=== PATIENT | female | born 1935 | race Caucasian/White ===

== ENCOUNTER → 2016-05-10 | Outpatient (CLI) | payer MEDICARE, OTHER ==
[~2016-05-10] MED LIST: CALCIUM 500 +1 EAC4 PO; CENTRUM SILVER1 EAC3 PO; CITRACAL SOFT1 EACH PO; COZAAR50 MG PO; DULCOLAX10 MG RECTAL; FERROUS SULFAT325 M1 PO; FISH OIL1 GM PO; FLOVENT DISKUS50 MCG NASBOTH; IPRATROPIUM BROMIDE NASBOTH; LEVAQUIN750 MG PO; LEXAPRO20 MG PO; MAGNESIUM OXID400 MG PO; MICROZIDE12.5 MG PO; MILK OF MAGNESI30 ML PO; MIRALAX17 GM PO; MOBIC7.5 M1 PO; MONOPRIL10 MG PO; MUCINEX600 M1 PO; NAMENDA10 MG PO; NORVASC2.5 M1 PO; OS-CAL 500+D31 EAC1 PO; OSTEO BI-FLEX1 EAC1 PO; PROTONIX20 MG PO; RAZADYNE ER24 MG PO; RAZADYNE ER8 MG PO; RITALIN20 MG PO; SENNA-S TABLET1 EACH PO; TAMBOCOR50 MG PO; TOPROL XL25 MG PO; TRINTELLIX PO; TYLENOL325 MG PO; ULTRAM50 MG PO; VITAMIN B-121000 MC1 PO; VITAMIN B-121000 MCG PO; VITAMIN C1000 M1 PO; VITAMIN C250 MG PO; VITAMIN D35000 UNIT PO; WELLBUTRIN XL300 MG PO; XARELTO10 MG PO
== END | disposition short-term general hospital (02) ==
LOC: CLNEUR 09:49
DX: F03.90 Unspecified dementia, unspecified severity, without behavioral disturbance, psychotic disturbance, mood disturbance, and anxiety (principal); G30.9 Alzheimer's disease, unspecified

== ENCOUNTER → 2016-05-17 | Outpatient (CLI) | payer MEDICARE, OTHER | END | disposition short-term general hospital (02) | LOC: CLORTH 10:19 | DX: M17.12 Unilateral primary osteoarthritis, left knee (principal); M16.12 Unilateral primary osteoarthritis, left hip; M25.552 Pain in left hip; M25.562 Pain in left knee ==

== ENCOUNTER → 2016-06-22 | Outpatient (CLI) | payer MEDICARE, OTHER | END | disposition short-term general hospital (02) | LOC: CLCARD 06-08 10:54 | DX: I48.0 Paroxysmal atrial fibrillation (principal); I44.7 Left bundle-branch block, unspecified; R41.3 Other amnesia; I25.10 Atherosclerotic heart disease of native coronary artery without angina pectoris; I12.9 Hypertensive chronic kidney disease with stage 1 through stage 4 chronic kidney disease, or unspecified chronic kidney disease; N18.3 Chronic kidney disease, stage 3 (moderate) ==

== ENCOUNTER 2016-08-26 11:27 | Emergency (ER) | payer MEDICARE, OTHER ==
[~2016-08-26] VITALS: Ht 162.6 cm; Wt 61.7 kg
[~2016-08-26 11:27] MED LIST changes: -CENTRUM SILVER1 EAC3 PO; -DULCOLAX10 MG RECTAL; -LEVAQUIN750 MG PO; -MILK OF MAGNESI30 ML PO; -MUCINEX600 M1 PO; -SENNA-S TABLET1 EACH PO; -TRINTELLIX PO; -TYLENOL325 MG PO
[2016-12-02] MEDS ORDERED: DULCOLAX10 MG RECTAL (17:23)
[2016-12-02] MEDS ORDERED: MILK OF MAGNESI30 ML PO (17:24)
[2016-12-02] MEDS ORDERED: SENNA-S TABLET1 EACH PO (17:26)
[2016-12-02] MEDS ORDERED: TRINTELLIX PO (17:32)
[2016-12-02] MEDS ORDERED: CENTRUM SILVER1 EAC3 PO (17:35)
[2016-12-02] MEDS ORDERED: TYLENOL325 MG PO (17:41)
[2016-12-04] MEDS ORDERED: MUCINEX600 M1 PO (13:00)
[2016-12-04] MEDS ORDERED: LEVAQUIN750 MG PO (13:03)
== END 2016-08-26 13:40 | disposition short-term general hospital (02) ==
LOC: ER 11:27
DX: K30 Functional dyspepsia (principal); F03.90 Unspecified dementia, unspecified severity, without behavioral disturbance, psychotic disturbance, mood disturbance, and anxiety; K21.9 Gastro-esophageal reflux disease without esophagitis; D64.9 Anemia, unspecified; I48.91 Unspecified atrial fibrillation; F32.9 Major depressive disorder, single episode, unspecified; I10 Essential (primary) hypertension; E55.9 Vitamin D deficiency, unspecified; Z79.899 Other long term (current) drug therapy